=== PATIENT | male | born 2000 | race Caucasian/White ===

== ENCOUNTER 2022-02-14 16:24 | Emergency (ER) | payer SELFPAY ==
[2022-02-14] MEDS ORDERED: Lidocaine 1% PF 5 ML VIAL ONE ×2 (17:05→17:06)
== END 2022-02-14 17:38 ==
LOC: ERS 16:24
DX: S01.551A Open bite of lip, initial encounter (principal); W50.3XXA Accidental bite by another person, initial encounter
CPT/HCPCS: 12011